=== PATIENT | female | born 1990 | race Caucasian/White ===

== ENCOUNTER → 2019-08-05 | Outpatient (CLI) | payer OTHER ==
[2019-08-05 14:22] VITALS: BP 153/117; PULSE 97; TEMP 98.3; BMI 35.5
--- NOTE | 2019-08-05 14:28 | P.HPBAR ---
Bariatric H&P - History & Physicial H&P Date: 08/05/19 History & Physicial: Visit/CC: discuss revision, suffers from horrible acid reflux Patient initial contact: Initial weight: 142.882 kg Initial weight in pounds: 315.00 Height: 4 ft 11 in Initial BMI: 63.6 Last weight: Current weight: 79.787 kg Current weight in pounds: 175.90 Current BMI: 35.5 [place] body weight (based on NIH guidelines): 43.091 kg Excess body weight loss: 63.2% The patient is a 28 year-old F who presents for Bariatric Assessment. Patient has complaints of GERD. She states her crit is worsened over the last several months patient up and seen several years. Past Medical History Past Medical History: GERD/Reflux Additional Past Medical History / Comment(s): Insomnia History of Any Multi-Drug Resistant Organisms: None Reported Past Surgical History: Adenoidectomy, Cholecystectomy, Tonsillectomy Additional Past Surgical History / Comment(s): lap band placed 2009 (removed 2012 and converted to gastric sleeve), cholecystectomy 2013, tubes placed in bilateral ears as an infant, tonsils and adenoids at age 8 Past Anesthesia/Blood Transfusion Reactions: No Reported Reaction, Postoperative Nausea & Vomiting (PONV) Additional Past Anesthesia/Blood Transfusion Reaction / Comm: No blood transfusion to date Past Psychological History: Anxiety, Depression, PTSD Additional Psychological History / Comment(s): past hx of alcholism, as of 08/05/19 states she has been sober for 70 days . (Takes Antabuse 250mg daily and a Vivitrol 380 mg (an opiod brian) IM injection Q28 days to assist in keeping her sober. Smoking Status: Current every day smoker Additional Past Alcohol Use History / Comment(s): * smokes 1/2 pack/day since age 15. *hx of alcholism, as of 08/05/19 states she has been sober for 70 days Surgical - Exam Vital Signs Temp Pulse BP 98.3 F 97 153/117 08/05/19 13:46 08/05/19 13:46 08/05/19 13:46 - General well developed, well nourished, no distress - Abdomen Abdomen: soft, non tender Bariatric Assessment & Plan Plan: Status post sleeve history. Patient significant GERD. She'll undergo esophagram and EGD. She'll follow-up after this had been performed Bariatric Checklist Checklist: Plan: Checklist: EGD: 1. Hiatal hernia: 2. H. Pylori: HgbA1c: Vitamin D: Smoking: Current every day smoker Primary care physician referral: Dr. Ahmet Allred ([place], [place]) phone [phone] Psychiatry clearance: Cardiology clearance: Sleep study: Diet journal: VTE risk score: VTE risk level: Rehab needs at discharge:
--- NOTE | 2019-08-05 17:44 | FL ---
EXAMINATION TYPE: FL single contrast barium swallow DATE OF EXAM: 08/05/2019 CLINICAL INDICATION: 28-year-old female dysphasia and GERD. History of lap band conversion and placem ent of gastric sleeve in 2013 COMPARISON: None Total Fluoroscopy Time: 1 minute 38 seconds. Total images: 27 Oral contrast: 4 ounces thin barium. FINDINGS: Esophagus has a normal course and caliber and normal motility. No suspicious filling defect is encoun tered allowing for single contrast technique. On supine and prone imaging, a small hiatal hernia is evident. Turning in Valsalva maneuver shows sma ll amount of backfilling into the hiatal hernia. There is no obstruction to the passage of contrast into the stomach. Post surgical changes of sleeve gastrectomy are demonstrated. IMPRESSION: 1. Status post sleeve gastrectomy. 2. A small hiatal hernia is present. 3. Valsalva and positional maneuvers when the patient is supine/prone results in a small amount of ba ckfilling of the hiatal hernia. Darci gastroesophageal reflux was not visualized during the course of the exam but this does not exclude its possibility. 4. No suspicious filling defect or stricture.
== END ==
LOC: BARWHC3 13:29
PROVIDERS: ATTEND Surgery
DX: K21.9 Gastro-esophageal reflux disease without esophagitis (principal); K44.9 Diaphragmatic hernia without obstruction or gangrene; F17.200 Nicotine dependence, unspecified, uncomplicated; Z90.49 Acquired absence of other specified parts of digestive tract; Z98.84 Bariatric surgery status
CPT/HCPCS: 74220; G0463; 99201

== ENCOUNTER 2019-08-27 08:19 | Day surgery (SDC) | payer OTHER ==
[2019-08-26 08:41] VITALS: BMI 35.5
[~2019-08-27 08:19] MED LIST: LACTATED RINGERS 1,000 ML IV SCH; LIDOCAINE 1% 20 ML VIAL (10MG/ML) FOR IV START INTRADERMA PRN
[2019-08-27 08:53] VITALS: TEMP 98.7
[2019-08-27] MEDS ORDERED: LIDOCAINE 1% INJ 10MG/ML (20 ML MDV) ONE (09:24)
[2019-08-27] MEDS ORDERED: PROPOFOL 10 MG/ML 20 ML VIAL IV ONE (09:24)
--- NOTE | 2019-08-27 09:28 | P.GSHP ---
History of Present Illness H&P Date: 08/27/19 Chief Complaint: gerd This a 28-year-old female who presents today for EGD. She's had issues with GERD. Past Medical History Past Medical History: Asthma, GERD/Reflux Additional Past Medical History / Comment(s): Insomnia, HEART MURMUR-BENIGN , ANEMIA History of Any Multi-Drug Resistant Organisms: None Reported Past Surgical History: Adenoidectomy, Cholecystectomy, Tonsillectomy Additional Past Surgical History / Comment(s): lap band placed 2009 (removed 2012 and converted to, gastric sleeve, cholecystectomy , tubes placed in bi lateral ears as an infant, tonsils and adenoids Past Anesthesia/Blood Transfusion Reactions: Postoperative Nausea & Vomiting (PONV) Additional Past Anesthesia/Blood Transfusion Reaction / Comment(s): No blood transfusion to date Smoking Status: Current every day smoker - Past Family History Mother Family Medical History: Cancer Additional Family Medical History / Comment(s): THYROID CANCER Medications and Allergies Home Medications Medication Instructions Recorded Confirmed Type Citalopram Hydrobromide [CeleXA] 10 mg PO DAILY 08/05/19 08/26/19 History Disulfiram [Antabuse] 250 mg PO DAILY 08/05/19 08/26/19 History Esomeprazole Magnesium [NexIUM] 40 mg PO DAILY 08/05/19 08/26/19 History Norgestimate-Ethinyl Estradiol 1 tab PO DAILY 08/05/19 08/26/19 History [Sprintec 28 Day Tablet] Ondansetron [Zofran] 4 mg PO Q8HR PRN 08/05/19 08/26/19 History Vivitrol 380 mg IM Q28D 08/05/19 08/26/19 History traZODone HCL [TraZODone HCl] 50 mg PO HS 08/05/19 08/26/19 History Albuterol Sulfate [Ventolin HFA] 1 - 2 puff INHALATION Q6H PRN 08/26/19 08/26/19 History Allergies Allergy/AdvReac Type Severity Reaction Status Date / Time No Known Allergies Allergy Verified 08/27/19 08:51 Surgical - Exam Vital Signs Temp Pulse Resp BP Pulse Ox 98.7 F 85 16 158/101 100 08/27/19 08:52 08/27/19 08:52 08/27/19 08:52 08/27/19 08:52 08/27/19 08:52 - General well developed, well nourished, no distress - Eyes PERRL - ENT normal pinna - Neck no masses - Respiratory normal expansion - Cardiovascular Rhythm: regular - Abdomen Abdomen: soft, non tender Assessment and Plan Assessment: GERD. We'll perform EGD.
[2019-08-27] MEDS ORDERED: IV FLUID CONTINUATION 1,000 ML IV ONE (09:41)
--- NOTE | 2019-08-27 09:43 | P.OP ---
Date of Procedure: 08/27/19 Preoperative Diagnosis: GERD. Morbid obesity Postoperative Diagnosis: Possible stricture of gastric sleeve Procedure(s) Performed: EGD Anesthesia: MAC Surgeon: Kenney Nascimento Pathology: none sent Condition: stable Disposition: PACU Description of Procedure: The patient's placed on the endoscopy table lateral position. She received IV sedation. The gastroscope placed oropharynx passed in the esophagus and into the stomach. Scope was then placed through the pylorus. The first second portion duodenum appeared normal. Scope was then brought back and the patient's gastric sleeve was examined. There appeared to be evidence of a small stricture near the distal part of the sleeve. This was dilated with a 20 mm balloon. This was done twice. The balloon was then removed and then the sleeve examined. There appeared to be no evidence of injury to the sleeve. The scope was withdrawn. The esophagus. Normal. The GI GE junction was at 40 cm. The proximal esophagus appeared normal. Scope was then withdrawn for patient.
[2019-08-27 09:49] VITALS: RESP 18
[2019-08-27 10:03] VITALS: BP 143/97; PULSE 65
== END 2019-08-27 10:14 | disposition home or self-care (01) ==
LOC: ORWHC2ENDO 08:19
PROVIDERS: ATTEND Surgery
DX: K95.89 Other complications of other bariatric procedure (principal); K31.89 Other diseases of stomach and duodenum; D64.9 Anemia, unspecified; J45.909 Unspecified asthma, uncomplicated; K21.9 Gastro-esophageal reflux disease without esophagitis; E66.01 Morbid (severe) obesity due to excess calories; G47.00 Insomnia, unspecified; F17.210 Nicotine dependence, cigarettes, uncomplicated; Z90.49 Acquired absence of other specified parts of digestive tract; Z90.89 Acquired absence of other organs; Z79.3 Long term (current) use of hormonal contraceptives; Z79.899 Other long term (current) drug therapy; Z98.84 Bariatric surgery status; Z80.8 Family history of malignant neoplasm of other organs or systems; Z68.35 Body mass index [BMI] 35.0-35.9, adult
CPT/HCPCS: 81025; 43245; J2001; J2704; C1726

== ENCOUNTER → 2019-12-09 | Outpatient (CLI) | payer OTHER ==
[2019-12-09 14:03] VITALS: BP 140/85; PULSE 76; TEMP 98.1; BMI 36.2
--- NOTE | 2019-12-09 14:22 | P.HPBAR ---
Bariatric H&P - History & Physicial H&P Date: 12/09/19 History & Physicial: Visit/CC: EGD f/u results Patient initial contact: Initial weight: 142.882 kg Initial weight in pounds: 315.00 Height: 4 ft 11 in Initial BMI: 63.6 Last weight: Current weight: 81.374 kg Current weight in pounds: 179.40 Current BMI: 36.2 [place] body weight (based on NIH guidelines): 43.091 kg Excess body weight loss: 61.6% The patient is a 29 year-old F who presents for Bariatric Assessment. Patient presents today for sleeve gastric fall. She's had some issues of dysphagia. Patient's. History of gastric sleeve stricture with dilation Past Medical History Past Medical History: Asthma, GERD/Reflux Additional Past Medical History / Comment(s): Insomnia, HEART MURMUR-BENIGN , ANEMIA History of Any Multi-Drug Resistant Organisms: None Reported Past Surgical History: Adenoidectomy, Cholecystectomy, Tonsillectomy Additional Past Surgical History / Comment(s): lap band placed 2009 (removed 2012 and converted to, gastric sleeve, cholecystectomy , tubes placed in bilateral ears as an , tonsils and adenoids Past Anesthesia/Blood Transfusion Reactions: Postoperative Nausea & Vomiting (PONV) Additional Past Anesthesia/Blood Transfusion Reaction / Comm: No blood transfusion to date Past Psychological History: Anxiety, Depression, PTSD Additional Psychological History / Comment(s): past hx of alcholism, as of 08/05/19 . (Takes Antabuse 250mg daily and a Vivitrol 380 mg (an opiod brian) IM injection Q28 days to assist in keeping her sober. Smoking Status: Current every day smoker Additional Past Alcohol Use History / Comment(s): * smokes 1/2 pack/day since age 15. *hx of alcholism, as of 08/05/19 states she has been sober for 70 days Past Drug Use History: None Reported - Past Family History Mother Family Medical History: Cancer Additional Family Medical History / Comment(s): THYROID CANCER Surgical - Exam Vital Signs Temp Pulse BP 98.1 F 76 140/85 12/09/19 13:58 12/09/19 13:58 12/09/19 13:58 - General well developed, well nourished, no distress - Eyes PERRL - ENT normal pinna - Neck no masses - Respiratory normal expansion - Cardiovascular Rhythm: regular - Abdomen Abdomen: soft, non tender Bariatric Assessment & Plan Plan: Mr. erickson. Patient has a known sleeve stricture. Patient undergo EGD with balloon dilatation. Bariatric Checklist Checklist: Plan: Checklist: EGD: 1. Hiatal hernia: 2. H. Pylori: HgbA1c: Vitamin D: Smoking: Current every day smoker Primary care physician referral: Dr. Alfred Mercer ([place], [place]) phone [phone] Psychiatry clearance: Cardiology clearance: Sleep study: Diet journal: VTE risk score: VTE risk level: Rehab needs at discharge:
== END | disposition home or self-care (01) ==
LOC: BARWHC3 13:19
PROVIDERS: ATTEND Surgery
DX: Z48.815 Encounter for surgical aftercare following surgery on the digestive system (principal); R13.10 Dysphagia, unspecified; F17.200 Nicotine dependence, unspecified, uncomplicated; Z90.49 Acquired absence of other specified parts of digestive tract
CPT/HCPCS: 99211

== ENCOUNTER → 2020-08-03 | Outpatient (CLI) | payer OTHER ==
[2020-08-03 14:12] VITALS: BP 135/87; PULSE 70; RESP 16; TEMP 99.1; BMI 33.7
--- NOTE | 2020-08-03 14:36 | P.HPBAR ---
Bariatric H&P - History & Physicial H&P Date: 08/03/20 History & Physicial: Visit/CC: Alejandro Whitney Patient initial contact: Initial weight: 142.882 kg Initial weight in pounds: 315.00 Height: 4 ft 11 in Initial BMI: 63.6 Last weight: Current weight: 75.75 kg Current weight in pounds: 167.00 Current BMI: 33.7 [place] body weight (based on NIH guidelines): 43.091 kg Excess body weight loss: 67.2% The patient is a 29 year-old F who presents for Bariatric Assessment. Patient presents today for sleeve gastrectomy follow-up. Patient has a large pannus. She's loss approximately 150 pounds. She's had issues with chronic skin irritation. Past Medical History Past Medical History: Asthma, GERD/Reflux Additional Past Medical History / Comment(s): Insomnia, HEART MURMUR-BENIGN , ANEMIA History of Any Multi-Drug Resistant Organisms: None Reported Past Surgical History: Adenoidectomy, Cholecystectomy, Tonsillectomy Additional Past Surgical History / Comment(s): lap band placed 2009 (removed 2012 and converted to, gastric sleeve, cholecystectomy , tubes placed in bilateral ears as an , tonsils and adenoids Past Anesthesia/Blood Transfusion Reactions: Postoperative Nausea & Vomiting (PONV) Additional Past Anesthesia/Blood Transfusion Reaction / Comm: No blood transfusion to date Past Psychological History: Anxiety, Depression, PTSD Additional Psychological History / Comment(s): past hx of alcholism, as of 08/05/19 . (Takes Antabuse 250mg daily and a Vivitrol 380 mg (an opiod brian) IM injection Q28 days to assist in keeping her sober. Smoking Status: Unknown if ever smoked Additional Past Alcohol Use History / Comment(s): * smokes 1/2 pack/day since age 15. *hx of alcholism, as of 08/05/19 states she has been sober for 70 days Past Drug Use History: None Reported - Past Family History Mother Family Medical History: Cancer Additional Family Medical History / Comment(s): THYROID CANCER Surgical - Exam Vital Signs Temp Pulse Resp BP 99.1 F 70 16 135/87 08/03/20 14:08 08/03/20 14:08 08/03/20 14:08 08/03/20 14:08 - General well developed - Eyes PERRL - ENT normal pinna - Neck no masses - Respiratory normal expansion - Cardiovascular Rhythm: regular - Abdomen Abdomen soft. There is a well-formed large pannus. The pannus extends beyond the pubic area. Bariatric Assessment & Plan Plan: Resolving morbid obesity. Patient BMI is 33 currently she's lost approximately 150 pounds total. Patient is aware formed pannus. Patient appeared authorized for panniculus. Bariatric Checklist Checklist: Plan: Checklist: EGD: 1. Hiatal hernia: 2. H. Pylori: HgbA1c: Vitamin D: Smoking: Current every day smoker Primary care physician referral: Dr. Alfred Mercer ([place], [place]) phone [phone] Psychiatry clearance: Cardiology clearance: Sleep study: Diet journal: VTE risk score: VTE risk level: Rehab needs at discharge:
== END | disposition home or self-care (01) ==
LOC: BARWHC3 13:13
PROVIDERS: ATTEND Surgery
DX: Z48.815 Encounter for surgical aftercare following surgery on the digestive system (principal); L98.9 Disorder of the skin and subcutaneous tissue, unspecified; Z90.79 Acquired absence of other genital organ(s); E66.01 Morbid (severe) obesity due to excess calories; Z68.33 Body mass index [BMI] 33.0-33.9, adult; F17.200 Nicotine dependence, unspecified, uncomplicated
CPT/HCPCS: 99211